=== PATIENT | female | born 1955 | race Caucasian/White ===

== ENCOUNTER 2018-05-01 11:30 | Emergency (ER) | payer OTHER ==
[2018-05-01 11:33] VITALS: BMI 27.2
[2018-05-01 11:34] VITALS: PULSE 75; O2SAT 99
[2018-05-01] MEDS ORDERED: Lidocaine 2% w Epi 1:100,000 Inj IJ ONE ×2 (11:55→12:00)
[2018-05-01] MEDS ORDERED: Tdap Vaccine 0.5 ml Vial (10-64 yrs) IM ONE ×2 (11:55→12:00)
--- NOTE | 2018-05-01 12:09 | ED PDOC ---
HPI: General Adult Time Seen by Provider: 05/01/18 11:40 Chief Complaint (Nursing): Trauma Chief Complaint (Provider): FALL/FACIAL INJURY History Per: Patient History/Exam Limitations: no limitations Onset/Duration Of Symptoms: Mins Current Symptoms Are (Timing): Still Present Recent Trauma: TRIP AND FALL ON [employer]NEVEN PAVEMENT Additional History Per: Patient Additional Complaint(s): 62 Y/O FEMALE WITH NO MED HX AND NO MEDICATIONS, PRESENTS TO ED AFTER A TRIP AND FALL ON [place] PAVEMENT AT 11AM TODAY. PT DENIES LOC. PT REPORTS SHE TRIPPED AND FELL FACE FORWARD WHILE WEARING EYE GLASSES. PT STATES EYE GLASSES BROKE AND THATS HOW SHE THINKS SHE SUSTAINED TWO LACERATIONS ON FOREHEAD ABOVE EACH EYEBROW. PT DENIES NASAL BLEEDING, HEADACHE, NAUSEA, VOMITING, BLURRY VISION, DIZZINESS, AND PAIN ELSEWHERE. Past Medical History Reviewed: Historical Data, Nursing Documentation, Vital Signs Vital Signs: Last Vital Signs Temp 97.7 F 05/01/18 11:33 Pulse 75 05/01/18 11:33 Resp 16 05/01/18 11:33 BP 155/76 H 05/01/18 11:33 Pulse Ox 99 05/01/18 11:33 BRADLEY Report Viewed: No - Medical History PMH: No Chronic Diseases - Family History Family History: States: Unknown Family Hx - Social History Alcohol: None Drugs: Denies - Immunization History Hx Tetanus Toxoid Vaccination: No (UNKNOWN STATUS) - Allergies Allergies/Adverse Reactions: Allergies Allergy/AdvReac Type Severity Reaction Status Date / Time No Known Allergies Allergy Verified 05/01/18 11:32 Review of Systems ROS Statement: Except As Marked, All Systems Reviewed And Found Negative Constitutional: Negative for: Weakness Eyes: Negative for: Redness ENT: Positive for: Nose Congestion (PT REPORTS HAVING SINSUS "PROBLEM" PERSISTENT NASAL CONGESTION). Negative for: Ear Pain Cardiovascular: Negative for: Chest Pain Respiratory: Negative for: Shortness of Breath, SOB with Exertion Gastrointestinal: Negative for: Nausea, Vomiting, Abdominal Pain Genitourinary Female: Negative for: Dysuria Musculoskeletal: Negative for: Neck Pain Neurological: Negative for: Weakness Physical Exam - Reviewed Nursing Documentation Reviewed: Yes Vital Signs Reviewed: Yes - Physical Exam Appears: Positive for: Well, Non-toxic, No Acute Distress Head Exam: Positive for: ATRAUMATIC, NORMAL INSPECTION, NORMOCEPHALIC Skin: Positive for: Normal Color (1.5cm laceration to forehead above the right eyebrow and approx 1.5cm, in length, 0.5cm deep, shear lac, smooth edges/ .5cm deep, shear lac, smooth edges vertical lacerations above left eye brown , both i n line with inner canthus of the eyes. neg for dirt or debris ), Warm Eye Exam: Positive for: Normal appearance, EOMI, PERRL. Negative for: Periorbital swelling, Periorbital tenderness, Conjunctival injection ENT: Positive for: Normal ENT Inspection, TM Is/Are (INTACT, NEG FOR BLEED OR FLUID IN EARS), Nasal Congestion (POS FOR NASAL SWELLING, AFTER FALL. NEG FOR DEFORMITY OR NASAL BLEEDING OR DRAINAGE. ). 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 1334: PT TOLERATED LACERATION REPAIR WELL. NURSE TO APPLY BACITRACIN AND DRESSING TO WOUNDS. PT TO RETURN TO ED IN 5 DAYS FOR SUTURE REMOVAL. NASAL BONE XRAY IS NEG FOR FX. PT INFORMED OF CLINICAL FINDINGS. NO PRESCRIPTIONS GIVEN. NO FURTHER WORK UP NEEDED. PT INFORMED TO RETURN TO ED IF NAUSEA, VOMITING, SEVERE HEADACHE, DIZZINESS DEVELOPS. PT REPORTS UNDERSTANDING. ccession No. : [id number] Patient Name / ID : OPAL PUENTE / [id number] Exam Date : 05/01/2018 12:41:17 ( Approved ) Study Comment : Sex / Age : F / 62Y Creator : Chin Davis MD Dictator : Chin Davis MD Investment Representative : Ins[employer] Back Tender : Chin Davis MD Approver2 : Report Date : 05/01/2018 13:14:42 My Comment : Date of service: 05/01/2018 PROCEDURE: Radiographs of Nasal Bones HISTORY: fall/ nasal swelling COMPARISON: None available. TECHNIQUE: Frontal and lateral radiographs of the nasal bones. FINDINGS: No fracture of nasal bones visualized. No destructive lesion. IMPRESSION: No nasal bone fracture visualized. Procedures - Time-Out Type of Procedure: laceration repair Site of Procedure: forehead Correct Patient (with visual ID + MR# on ID Band): Yes Correct Procedure: Yes (lac repair ) Correct Site Marked: NA X-Ray Marked: NA Medication Reconciliation / Bloodwork / Allergies Checked: Yes (nka) PA/Tech: Kenya Toro APN - Laceration/Wound Repair Anterior Face Wound Length (cm): 1.5 Wound's Depth, Shape: superficial, linear Wound Explored: no foreign body removed Irrigated w/ Saline (ccs): 50 Betadine Prep?: Yes Anesthesia: Lidocaine w/ Epi Volume Anesthetic (ccs): 1 Wound Debrided: moderate Wound Repaired With: Sutures Suture Size/Type: 5:0, proline Number of Sutures: 5 Layer Closure?: No Wound Complexity: Simple Sterile Dressing Applied?: Yes Splint Applied?: No Progress: Pt tolerated well Anterior Frontal Wound Length (cm): 1.5 Wound's Depth, Shape: superficial Wound Explored: no foreign body removed Betadine Prep?: Yes Anesthesia: Lidocaine w/ Epi Volume Anesthetic (ccs): 1 Wound Debrided: moderate Wound Repaired With: Sutures Suture Size/Type: 5:0, proline Number of Sutures: 5 Layer Closure?: No Wound Complexity: Simple Sterile Dressing Applied?: Yes Splint Applied?: No Disposition - Clinical Impression Clinical Impression: Laceration, Fall, Contusion of nose - Patient ED Disposition Is Patient to be Admitted: No Counseled Patient/Family Regarding: Diagnosis, Need For Followup - Disposition Disposition: Routine/Home Disposition Time: 14:34 Condition: GOOD Additional Instructions: Return to ED or PMD for suture removal in 5 days. Instructions: Wound Care (DC), Laceration Repair With Stitches (DC) Print Language: BENGALI - POA Present On Arrival: None
--- NOTE | 2018-05-01 14:04 | RAD ---
Date of service: 05/01/2018 PROCEDURE: Radiographs of Nasal Bones HISTORY: fall/ nasal swelling COMPARISON: None available. TECHNIQUE: Frontal and lateral radiographs of the nasal bones. FINDINGS: No fracture of nasal bones visualized. No destructive lesion. IMPRESSION: No nasal bone fracture visualized.
[2018-05-01 14:55] VITALS: BP 126/79; RESP 18; TEMP 98.3
== END 2018-05-01 14:51 | disposition home or self-care (01) ==
LOC: H.ER 11:30
DX: S01.81XA Laceration without foreign body of other part of head, initial encounter (principal); S00.33XA Contusion of nose, initial encounter; W01.0XXA Fall on same level from slipping, tripping and stumbling without subsequent striking against object, initial encounter; Z23 Encounter for immunization

== ENCOUNTER 2018-05-06 15:25 | Emergency (ER) | payer OTHER ==
[2018-05-06 15:25] VITALS: BMI 27.2
[2018-05-06 15:36] VITALS: BP 135/81; PULSE 69; RESP 18; TEMP 97.9; O2SAT 96
--- NOTE | 2018-05-06 15:37 | ED PDOC ---
HPI: Wound Care - HPI Time Seen by Provider: 05/06/18 15:37 Chief Complaint (Nursing): Suture/Staple Removal Chief Complaint (Provider): Suture/Staple Removal History Per: Patient Exam Limitations: no limitations Onset/Duration Of Symptoms: Days Current Symptoms Are (Timing): Better Additional Complaint(s): Patient is a 62 y/o female with no significant PMHx who presents to the ED for suture removal. Patient's sutures were applied in this ED on 04/24/2018 for lacerations sustained to each eyebrow. Currently, patient denies any further medical complaints. PCP: None Provided Past Medical History Reviewed: Historical Data, Nursing Documentation, Vital Signs Vital Signs: Last Vital Signs Temp 97.9 F 05/06/18 15:33 Pulse 69 05/06/18 15:33 Resp 18 05/06/18 15:33 BP 135/81 05/06/18 15:33 Pulse Ox 96 05/06/18 15:33 - Medical History PMH: No Chronic Diseases - Surgical History Surgical History: No Surg Hx - Family History Family History: States: Unknown Family Hx - Immunization History Hx Tetanus Toxoid Vaccination: No (UNKNOWN STATUS) - Allergies Allergies/Adverse Reactions: Allergies Allergy/AdvReac Type Severity Reaction Status Date / Time No Known Allergies Allergy Verified 05/01/18 11:32 Review of Systems ROS Statement: Except As Marked, All Systems Reviewed And Found Negative Skin: Positive for: Other (one laceration to each eyebrow) Physical Exam - Reviewed Nursing Documentation Reviewed: Yes Vital Signs Reviewed: Yes - Physical Exam Appears: Positive for: No Acute Distress Head Exam: Positive for: ATRAUMATIC, NORMAL INSPECTION, NORMOCEPHALIC Skin: Positive for: Normal Color, Warm Eye Exam: Positive for: Normal appearance, EOMI, PERRL Neck: Positive for: Normal, Painless ROM, Supple Cardiovascular/Chest: Positive for: Regular Rate, Rhythm. Negative for: Murmur Respiratory: Positive for: Normal Breath Sounds. Negative for: Respiratory Distress Extremity: Positive for: Normal ROM. Negative for: Pedal Edema, Deformity Neurological/Psych: Positive for: Alert, Oriented (x3) - ECG O2 Sat by Pulse Oximetry: 96 (RA) Pulse Ox Interpretation: Normal Medical Decision Making Medical Decision Making: Time: 1540 Patient's stitches were removed from bilateral eyebrows without any complications. Lacerations are reading well with no warmth, signs of infection, discharge, drainage, or streaking. Scribe Attestation: Documented by Wally Sprague, acting as a scribe forShant Landaverde PA-C Provider Scribe Attestation: All medical record entries made by the Scribe were at my direction and personally dictated by me. I have reviewed the chart and agree that the record accurately reflects my personal performance of the history, physical exam, medical decision making, and the department course for this patient. I have also personally directed, reviewed, and agree with the discharge instructions and disposition. Disposition - Clinical Impression Clinical Impression: Removal of suture - Disposition Disposition Time: 15:40 Condition: STABLE Instructions: Stitches Removal Forms: [employer] ([place])
== END 2018-05-06 15:53 | disposition home or self-care (01) ==
LOC: H.ER 15:25
DX: Z48.02 Encounter for removal of sutures (principal)